=== PATIENT | female | born 1985 | race Caucasian/White ===

== ENCOUNTER 2016-12-17 15:17 | Emergency (ER) | payer MEDICAID ==
[~2016-12-17] VITALS: Wt 75.0 kg
[~2016-12-17 15:17] MED LIST: AMO500 PO; IBUP-1542 PO; NPH10OT RIGHT EAR; TRAM50TA2 PO
[2016-12-17] MEDS ORDERED: ACETAMINOPHEN 325 MG TAB PO STA (16:05)
[2016-12-17 16:28] LABS: ADD SCAN DIFF NO
[2016-12-17 16:31] LABS: BASOPHILS % 0.4 % (0.0-2.0); EOSINOPHILS # 0.3 10^3/ul (0.0-0.5); HEMATOCRIT 37.4 % (37.0-47.0); HEMOGLOBIN 12.2 g/dl (12.0-16.0); LYMPHOCYTES % 26.9 % (15.0-51.0); MEAN CORPUSCULAR HEMOGLOBIN 30.3 pg (29.0-33.0); MEAN CORPUSCULAR HGB CONC 32.6 g/dl (32.0-37.0); MONOCYTE # 0.7 10^3/ul (0.3-0.9); NEUTROPHIL # 7.2 10^3/ul (1.6-7.5); NEUTROPHILS % 63.5 % (39.0-77.0); PLATELET COUNT 424 10^3/UL (140-415); RED BLOOD COUNT 4.02 10^6/ul (4.20-5.40); RED CELL DISTRIBUTION WIDTH 12.3 % (11.5-14.5); WHITE BLOOD COUNT 11.3 10^3/ul (4.8-10.8)
[2016-12-17 16:32] LABS: ADD UMIC YES; URINE BILIRUBIN (Dip) NEGATIVE (NEGATIVE); URINE BLOOD (Dip) 2+ (NEGATIVE); URINE COLOR LT. YELLOW (YELLOW); URINE GLUCOSE (Dip) NEGATIVE (NEGATIVE); URINE KETONES (Dip) NEGATIVE (NEGATIVE); URINE LEUKOCYTE ESTERASE (Dip) TRACE (NEGATIVE); URINE NITRITE (Dip) NEGATIVE (NEGATIVE); URINE TOTAL PROTEIN (Dip) NEGATIVE (NEGATIVE); URINE UROBILINOGEN (Dip) 0.2 E.U./dL (0.1-1.0)
[2016-12-17 16:38] LABS: SQUAMOUS EPITHELIAL CELL,UR MODERATE
[2016-12-17 16:39] LABS: BACTERIA,URINE RARE
--- NOTE | 2016-12-17 17:38 | RADRPT ---
PROCEDURE: US OB. CLINICAL INDICATION: Vaginal bleeding. TECHNIQUE: Transabdominal and transvaginal views of the pelvis are available for review. COMPARISON: No prior studies are available for comparison. FINDINGS: Uterus: No abnormalities are demonstrated. Endometrial cavity: Gestational sac, yolk sac and pole are present with the following informa tion: [place]-rump length:0.44 cm heart rate:NOT DETECTED Gestational sac:1.67 cm Ultrasound estimated gestational age:6 weeks 2 days Subchorionic hemorrhage adjacent to the gestational sac is estimated at 1 cm. Right ovary/adnexa: Ovarian size is normal measuring 3.9 x 2.2 x 2.9 cm with normal blood flow. No ovarian or adnexal mass lesion is seen. Left ovary/adnexa: Ovarian size is normal measuring 3.3 x 3 x 2 cm with normal blood flow. Hemorrh agic corpus luteum cyst of 1.8 x 1.5 x 1.5 cm is noted No adnexal mass lesion is seen. Cul-de-sac: There is no free fluid. RPTAT:HJJR IMPRESSION: 1. Lack of detectable heart tones concerning for embryonic demise at an estimated gestational age o f 6 weeks 2 days. 2. Approximately 1 cm subchorionic hemorrhage. 3. Left ovarian corpus luteum cyst of 1.8 cm. Physician Ashanti Date Time Electronically viewed and signed by Physician Ashanti on 12/17/2016 17:37 JR/
[2016-12-17] MEDS ORDERED: ONDANSETRON (ODT) 4 MG TAB ODT ONE (18:32)
[2016-12-17] MEDS ORDERED: ACET500C5 PO (18:56)
--- NOTE | 2016-12-17 20:41 | ERD ---
ER Documentation Chief Complaint Date/Time DATE: 12/17/16 TIME: 20:38 Chief Complaint VAG BLEED AND LOWER BACK PAIN FOR THE PAST WEEK. NO VOMITING. 12 WKS PREG HPI 31-year-old woman presents with mild pelvic cramping 1 week and intermittent mild vaginal bleeding. Last weeks obstetric ultrasound revealed a 12 week intrauterine without heart tones. She denies fevers or chills, no dysuria, no chest pain or shortness of breath. Patient denies dizziness or loss of consciousness. ROS All systems reviewed and are negative except as per history of present illness. Medications Home Meds Active Scripts Acetaminophen* (Tylophen*) 500 Mg Capsule, 2 CAP PO Q8H Y for PAIN AND OR ELEVATED TEMP, #30 CAP Prov:ANNEL TRINIDAD MD 12/17/16 Ibuprofen* (Motrin*) 600 Mg Tab, 600 MG PO Q6, #20 TAB Prov:NUBIA BARNES MD 10/16/15 Tramadol HCl (Tramadol HCl) 50 Mg Tablet, 50 MG PO Q4 Y for PAIN, #14 TAB Prov:NUBIA BARNES MD 10/16/15 Neomycin/Polymyxin/Hydrocort* (Cortisporin* Otic) 10 Ml Susp, 4 DROP RIGHT EAR QID for 7 Days, EA Prov:NUBIA BARNES MD 10/16/15 Amoxicillin* (Amoxicillin*) 500 Mg Cap, 500 MG PO TID for 7 Days, CAP Prov:VALDO LEAL 10/10/15 Ibuprofen* (Ibuprofen*) 600 Mg Tablet, 600 MG PO Q6 for 7 Days, TAB Prov:VALDO LEAL 10/10/15 Allergies Allergies: Coded Allergies: No Known Allergy (Unverified , 01/01/14) PMhx/Soc None Medical and Surgical Hx: pt denies Medical Hx, pt denies Surgical Hx Hx Substance Use: No Hx Tobacco Use: No Smoking Status: Never smoker FmHx Family History: No diabetes Physical Exam Vitals Vital Signs Date Time Temp Pulse Resp B/P Pulse Ox O2 Delivery O2 Flow Rate FiO2 12/17/16 15:38 98.8 84 20 123/85 98 Physical Exam GENERAL: Well-developed, well-nourished, well-hydrated, in no apparent distress , looks nontoxic in appearance HEENT: Moist mucous membranes, pink conjunctiva, no cervical spine tenderness or step-off deformities, no goiter, no jaundice or icterus, extraocular movements intact without pain. No submandibular induration, and no pharyngeal erythema NEURO: Alert and oriented 3, cranial nerves II through XII intact bilaterally, pupils equal round reactive to light, no focal deficits or facial asymmetry, sensation intact distally Strength 5/5 in upper and lower extremities bilaterally CARDIAC: Regular rate and rhythm, no murmurs rubs or gallops LUNGS: Clear bilaterally no wheezing crackles or stridor ABDOMEN: Soft nontender, no guarding, no rigidity, no rebound, no psoas sign no obturator sign. Normoactive bowel sounds SKIN: Warm and dry to touch, no abrasions, contusions, or hematomas, no lacerations, no ecchymosis, no target lesions, and without ulcers EXTREMITIES: No clubbing cyanosis or edema, calves are bilaterally symmetrical, no Homans sign, no popliteal cord sign. Distal pulses equal and bilateral PSYCH: Normal affect without agitation or irritability Result Diagram: 12/17/16 1615 Results 24 hrs Laboratory Tests Test 12/17/16 16:15 White Blood Count 11.310^3/ul Red Blood Count 4.0210^6/ul Hemoglobin 12.2g/dl Hematocrit 37.4% Mean Corpuscular Volume 93.0fl Mean Corpuscular Hemoglobin 30.3pg Mean Corpuscular Hemoglobin Concent 32.6g/dl Red Cell Distribution Width 12.3% Platelet Count 78744^3/UL Mean Platelet Volume 10.0fl Neutrophils % 63.5% Lymphocytes % 26.9% Monocytes % 6.0% Eosinophils % 3.0% Basophils % 0.4% Nucleated Red Blood Cells % 0.0/100WBC Neutrophils # 7.210^3/ul Lymphocytes # 3.010^3/ul Monocytes # 0.710^3/ul Eosinophils # 0.310^3/ul Basophils # 0.010^3/ul Nucleated Red Blood Cells # 0.010^3/ul Urine Color LT. YELLOW Urine Clarity CLEAR Urine pH 7.0 Urine Specific [place] <=1.005 Urine Ketones NEGATIVE Urine Nitrite NEGATIVE Urine Bilirubin NEGATIVE Urine Urobilinogen 0.2 E.U./dL Urine Leukocyte Esterase TRACE Urine Microscopic RBC 5-10/HPF Urine Microscopic WBC 2-5/HPF Urine Squamous Epithelial Cells MODERATE Urine Bacteria RARE Urine Hemoglobin 2+ Urine Glucose NEGATIVE% Urine Total Protein NEGATIVE Beta HCG, Quantitative 8266.1mIU/ml Current Medications Medications (Trade) Dose Ordered Sig/Marino Route PRN Reason Start Time Stop Time Status Last Admin Dose Admin Acetaminophen (Tylenol Tab) 650 mg ONCE STAT PO 12/17/16 16:05 12/17/16 16:06 DC 12/17/16 16:19 Ondansetron HCl (Zofran Odt) 4 mg STK-MED ONCE ODT 12/17/16 18:32 12/17/16 18:33 DC Procedures/MDM I administered acetaminophen 650 mg p.o. for her symptoms with good response. test was positive, urine analysis was unremarkable. Obstetric ultrasound of the pelvis was performed revealing an intrauterine at about 6 weeks without heart tones. CBC was unremarkable, beta-hCG elevated at about 8300. Patient suffered a missed and will be managed as an outpatient, have no indication for any further intervention, imaging, or admission. Her vital signs are normal, pain is been controlled, and she is afebrile. She does have a gynecology clinic that she follows up with my recommended she have her ultrasound and beta-hCG repeated in 1-2 days. She and her was at the bedside understood instructions and agreed to plan. Differential diagnoses considered, included but not limited to cervicitis, ovarian torsion, ectopic , abdominal aortic aneurysm, sepsis, stroke, meningitis, encephalitis, pneumonia, appendicitis, cholecystitis, bowel obstruction, pyelonephritis, nephrolithiasis, cystitis, as well as metabolic, hematologic, and electrolyte abnormalities. As well as abscess, cellulitis, fractures, and dislocations. Patient feels much better at this time, and vital signs are normal, symptoms have improved. I did give strict instructions to return to the ED if symptoms continue or worsen, patient will otherwise follow-up with primary care physician. Patient understood instructions and agreed to plan. Departure Diagnosis: Primary Impression: Missed Condition: Good Patient Instructions: Missed Miscarriage ANNEL TRINIDAD MD Dec 17, 2016 20:41
== END 2016-12-17 19:07 | disposition home or self-care (01) ==
LOC: FTE 15:17
DX: O02.1 Missed abortion (principal)
CPT/HCPCS: 36415; 76801; 76817; 81001; 81003; 84702; 85025; Z7502; Z7610

== ENCOUNTER 2018-05-26 17:18 | Emergency (ER) | END 2018-05-26 21:01 | disposition home or self-care (01) ==

== ENCOUNTER 2018-12-08 10:39 | Outpatient (CLI) | payer MEDICAID ==
[~2018-12-08] VITALS: Ht 162.6 cm; Wt 78.2 kg
[~2018-12-08 10:39] MED LIST changes: +ACET500C5 PO; -AMO500 PO; +AMOX500C2 PO; +CEPH-443 PO
[2018-12-08 11:12] VITALS: Ht 162.6 cm; Wt 78.2 kg
[2018-12-08 11:13] VITALS: BP 112/77; PULSE 93; RESP 20
--- NOTE | 2018-12-08 15:50 | PN ---
Triage Information Date/Time December 08, 2018 Reason for visit: Weeks of Gestation 32 weeks and 6 days /Para 4 para 2 Diabetes: none Hypertention: none Additional information 33-year-old with IUP at 32 weeks and 6 days presented with complaint of pelvic pain and pressure symptoms. She denies any vaginal bleeding however reports some leaking of urine. Denies any decreased movement. Denies any fever or chills. Reports pelvic pressure over the bladder. Denies any comp occasions during course Objective Vital Signs Date Temp Pulse Resp B/P (MAP) Pulse Ox O2 O2 Flow FiO2 Time Delivery Rate 12/08/18 98.2 93 20 112/77 Room Air 11:13 (89) Heart Rate: 130's Heart Rate Comments Category 1 Contractions: None Exam Appearance: Alert and oriented x4. appears to be in mild distress abdomen: Soft, gravid. Tenderness in the suprapubic area and over the bladder noted Fundal height consider gestational age No CVA tenderness Sterile speculum examination: Negative pooling, negative R OM test, negative nitrazine Results/Medications Results 24 hrs Laboratory Tests Test 12/08/18 10:00 12/08/18 13:40 Urine Color YELLOW Urine Clarity CLOUDY A Urine pH 6.0 Urine Specific [place] 1.016 Urine Ketones NEGATIVE Urine Nitrite NEGATIVE Urine Bilirubin NEGATIVE Urine Urobilinogen NEGATIVE Urine Leukocyte Esterase 3+ H Urine Microscopic RBC 2 Urine Microscopic WBC 12 H Urine Squamous Epithelial Cells MODERATE Urine Bacteria FEW A Urine Mucus FEW A Urine Hemoglobin NEGATIVE Urine Glucose NEGATIVE Urine Total Protein NEGATIVE Membranes Rupture NEGATIVE Imaging Results PROCEDURE: US OB biophysical profile. CLINICAL INDICATION: decreased movements, labor TECHNIQUE: Multiple sonographic images of the pelvis were obtained. The images were reviewed on a PACS workstation. COMPARISON: No prior studies are available for comparison. FINDINGS: There is a single live intrauterine gestation. Cardiac activity is present with 137 beats per minute. There is a vertex presentation. The placenta is posterior fundal. There is no evidence of placental abruption. There is a normal amount of amniotic fluid with an KEREN = 9.0 cm. Biophysical profile: movement 2/2 tone 2/2. breathing 2/2 KEREN 2/2 Total 8/8 RPTAT: AA . IMPRESSION: Normal biophysical profile. . Disposition: Discharge Assessment/Plan IUP at 32 weeks and 6 days Abdominal pain, pelvic pain and pressure, suprapubic tenderness UA consistent with UTI No evidence of PPROM or labor Patient will be discharged home with antibiotics. Rx with Keflex 500 mg p.o. 4 times daily for 7 days prescribed Discussed with the patient regarding adequate hydration Follow-up with primary OB office within 48 hours discussed with the patient labor precautions kick counts Discussed with patient. All questions were answered to patient's best satisfaction and patient verbalized understanding REGINA GARCIA MD Dec 08, 2018 15:50
== END 2018-12-08 15:10 | disposition home or self-care (01) ==
LOC: OBT 10:39 → L-D 10:40 → OBT 15:10
PROVIDERS: ATTEND Obstetrics & Gynecology
DX: O26.893 Other specified pregnancy related conditions, third trimester (principal); Z3A.32 32 weeks gestation of pregnancy; R10.2 Pelvic and perineal pain
CPT/HCPCS: 76818; 81001; 84112; G0463

== ENCOUNTER 2019-01-12 07:43 | Inpatient (IN) | payer MEDICAID ==
[~2019-01-12] VITALS: Ht 162.6 cm; Wt 80.8 kg
[2019-01-12 07:58] VITALS: Ht 162.6 cm; Wt 80.8 kg
[2019-01-12] MEDS ORDERED: LACTATED RINGER'S 1,000 ML IV PRN (12:36)
--- NOTE | 2019-01-12 12:49 | TRIAGE ---
OB Triage Datetime Report Generated by CPN: 01/12/2019 12:49 Datetime: 01/12/2019 12:31 Membrane Status: Intact Datetime: 01/12/2019 12:08 Vaginal Exam Dilatation (cms): 4.0 Effacement (%): 50 Station: -3 Exam By: TM Datetime: 01/12/2019 10:05 Vaginal Exam Dilatation (cms): 3.5 Effacement (%): 50 Station: -3 Exam By: TM Datetime: 01/12/2019 08:41 Vaginal Exam Dilatation (cms): 3.0 Effacement (%): 50 Station: -3 Exam By: TM Pool: Negative Nitrazine: Negative Datetime: 01/12/2019 07:56 Time of Arrival: 01/12/2019 07:40 EGA: 37.6 Arrived By: Ambulatory Arrived From: Home Movement: Present Contractions: Occasional Rupture of Membranes: Unsure Vaginal Bleeding: Normal Show Vaginal Discharge: Denies Recent Sexual Intercouse: Denies Abdominal Trauma: Not Applicable Patient Complaints: Contractions Time Provider Notified: 01/12/2019 08:14 Provider Notified: Hadadian Initial Plan: NST, VE, ambulate Datetime: 01/12/2019 07:55 Assessment Type: Triage Maternal Assessment Level of Consciousness: Fully Conscious DTR's/Clonus: DTRs 2+; No Clonus Headache: Denies Blurred Vision: No Respiratory Effort: Unlabored; Regular Rhythm; Equal Expansion Breath Sounds, Left: Clear and Equal Breath Sounds, Right: Clear and Equal Nausea/Vomiting: Denies RUQ Epigastric Pain: Denies Lower Extremities Edema: Bilateral Lower Extremities Degree: Trace Upper Extremities Edema: None Degree: None Facial Edema: None Fall Risk Assessment History of Falling: (0) No Secondary Diagnosis: (0) No Ambulatory Aid: (0) Bedrest/Nurse Assist IV Therapy: (0) No Gait: (0) Normal/Bedrest/Immobile Mental Status: (0) Oriented to Own Ability Fall Score: 0 Fall Risk Score Definition: No Risk: No action required Datetime: 01/12/2019 07:50 Stage of : OB Triage Datetime: 12/08/2018 14:55 Labor Evaluation Frequency: X1 Monitor Mode: External Duration (sec)2399: 40 Quality: Mild Pattern: Normal: <= 5 Contractions in 10 Minutes Resting Tone [place]: Relaxed Heart Rate FHR Baseline Rate: 130 Monitor Mode: External US FHR Baseline Changes: No Baseline Change Variability: Moderate 6-25 bpm Accelerations: 15X15 Decelerations: None Category: Category I Pain Assessment Pain Scale: 0 Pain Presence: None/Denies Pain Type: N/A Pain Goal: 0 Datetime: 12/08/2018 14:00 Labor Evaluation Frequency: 0 Monitor Mode: External Heart Rate FHR Baseline Rate: 130 Monitor Mode: External US FHR Baseline Changes: No Baseline Change Variability: Moderate 6-25 bpm Accelerations: 15X15 Decelerations: None Category: Category I Pain Assessment Pain Scale: 4 Pain Presence: Intermittent Pain Type: Pressure; Ache Pain Location: Abdomen; Perineum Pain Goal: 0 Datetime: 12/08/2018 13:06 Labor Evaluation Frequency: X3 Monitor Mode: External Duration (sec)2399: 40-60 Quality: Moderate Pattern: Normal: <= 5 Contractions in 10 Minutes Resting Tone [place]: Relaxed Heart Rate FHR Baseline Rate: 130 Monitor Mode: External US FHR Baseline Changes: No Baseline Change Variability: Moderate 6-25 bpm Accelerations: 15X15 Decelerations: None Category: Category I Pain Assessment Pain Scale: 6 Pain Presence: Intermittent Pain Type: Pressure; Ache Pain Location: Abdomen; Perineum Pain Goal: 0 Datetime: 12/08/2018 12:06 Labor Evaluation Frequency: X1 Monitor Mode: External Duration (sec)2399: 40 Quality: Mild Pattern: Normal: <= 5 Contractions in 10 Minutes Resting Tone [place]: Relaxed Heart Rate FHR Baseline Rate: 130 Monitor Mode: External US FHR Baseline Changes: No Baseline Change Variability: Moderate 6-25 bpm Accelerations: 15X15 Decelerations: None Category: Category I Pain Assessment Pain Scale: 8 Pain Presence: Intermittent Pain Type: Pressure; Ache Pain Location: Abdomen; Perineum Pain Goal: 0 Datetime: 12/08/2018 11:15 EGA: 32.6 Datetime: 12/08/2018 11:05 Stage of : OB Triage Assessment Type: Triage Maternal Assessment Level of Consciousness: Fully Conscious DTR's/Clonus: DTRs 2+; No Clonus Headache: Denies Blurred Vision: No Respiratory Effort: Unlabored; Regular Rhythm; Equal Expansion Breath Sounds, Left: Clear and Equal Breath Sounds, Right: Clear and Equal Nausea/Vomiting: Denies RUQ Epigastric Pain: Denies Lower Extremities Edema: None Degree: None Upper Extremities Edema: None Degree: None Facial Edema: None Temperature Route: Axillary Fall Risk Assessment History of Falling: (0) No Secondary Diagnosis: (0) No Ambulatory Aid: (0) Bedrest/Nurse Assist IV Therapy: (0) No Gait: (0) Normal/Bedrest/Immobile Mental Status: (0) Oriented to Own Ability Fall Score: 0 Fall Risk Score Definition: No Risk: No action required Datetime: 12/08/2018 10:35 Time of Arrival: 12/08/2018 10:35 EGA: 33.0 Arrived By: Ambulatory Arrived From: Home Chief Complaint: PRESSURE AND ABDOMINAL PAIN SINCE WEDNESDAY Movement: Present Contractions: Irregular Rupture of Membranes: Denies Vaginal Bleeding: None Vaginal Discharge: Denies Recent Sexual Intercouse: Denies Abdominal Trauma: Not Applicable Patient Complaints: Other Time Provider Notified: 12/08/2018 13:19 Provider Notified: JOSE Initial Plan: ISAIAS NORTON
--- NOTE | 2019-01-12 12:54 | HP ---
Date/Time of Note Date/Time of Note DATE: 01/12/19 TIME: 12:49 OB - History Hx of Present Free Text/Dictation 01/12/2019 Estimated Due Date: January 27, 2019 : 4 Para: 2 Care: Good Care Other Concerns: 33 years old with IUP at 37 weeks and 6 days with [facility] presented with complaint of labor and painful contractions, She was noted to have contractions every 4-5 min and cervical change consistent with likely early labor. She was admited due to cervical change GBS unknown. Antepartum course was only complicated by low MARIKA- A, otherwise non significant Past Family/Social History * Past Medical, Surgical, Family and Obstetric Histories reviewed from chart. Blood Type: O+ Rubella: immune RPR/VDRL: Negative GBS Status: Unknown HBsAG: Negative OB Admission Exam Physical Exam HEENT: WNL Heart: Rhythm Normal Lungs: Clear Abdomen: WNL Extremities: Normal Cervical Dilatation: 3cm Effacement: 50% Station: -3 Membranes: Intact Heart Rate: 130's Accelerations: Accelerations Present Decelerations: No Decelerations Varibility: Marked Contractions on Admission: < 5 Minutes Apart Intensity: Moderate OB Assessment/Plan Other Assessment: IUP at 37 weeks and 6 days contractions early labor GBS unknown Due to cervical change patient will be admitted for labor management. Admit the patient to labor and delivery Expectant management Anticipate REGINA YANG MD Jan 12, 2019 12:54
[2019-01-12] MEDS ORDERED: LIDOCAINE 1% (MPF) 30 ML INJ INJ PRN (13:00)
[2019-01-12] MEDS ORDERED: METHYLERGONOVINE 0.2 MG INJ IM PRN (13:00)
[2019-01-12] MEDS ORDERED: BUTORPHANOL 2 MG INJ IV PRN (13:00)
[2019-01-12] MEDS ORDERED: CARBOPROST 250 MCG INJ IM PRN (13:00)
[2019-01-12] MEDS ORDERED: IBUPROFEN 600 MG TAB PO PRN (13:00)
[2019-01-12] MEDS ORDERED: MINERAL OIL LIGHT 10 ML VIAL TOP PRN (13:00)
[2019-01-12] MEDS ORDERED: OXYTOCIN 30 UNITS/LR 500 ML IV SCH ×3 (13:00→23:00)
[2019-01-12] MEDS ORDERED: OXYTOCIN 30 UNITS/LR 500 ML IV PRN (13:00)
[2019-01-12] MEDS ORDERED: MISOPROSTOL 200 MCG TAB PR PRN (13:00)
[2019-01-12] MEDS: LACTATED RINGER'S 1,000 ML IV SCH ×3 (14:00→20:36)
[2019-01-13] MEDS ORDERED: OXYTOCIN 10 UNIT INJ ONE (02:01)
[2019-01-13] MEDS: LACTATED RINGER'S 1,000 ML IV SCH ×2 (04:45→10:06)
--- NOTE | 2019-01-13 08:34 | PREAC ---
Date/Time of Note Date/Time of Note DATE: 01/13/19 TIME: 08:33 Anesthesia Eval and Record Evaluation Time Pre-Procedure Interview DATE: 01/13/19 TIME: 08:33 Age 33 Sex female NPO: 8 hrs Preoperative diagnosis Planned procedure labor epidural Past Medical History Past Medical History: None Surgery & Anesthesia Issues No known issue Meds Anticoagulation: No Beta Del within 24 hr: No Reason Beta Del not given: Pt. not on B-Del No Active Prescriptions or Reported Meds Current Medications Lactated Ringer's 1,000 ml @ 125 mls/hr Q8H IV Last administered on 01/13/19at 04:45; Admin Dose 125 MLS/HR; Start 01/12/19 at 12:36 Butorphanol Tartrate (Stadol) 2 mg Q2H PRN IV .PAIN Last administered on 01/12/19at 14:27; Admin Dose 2 MG; Start 01/12/19 at 13:00 Lidocaine (Xylocaine 1% (Mpf)) 30 ml ONCE PRN INJ .EPISIOTOMY; Start 01/12/19 at 13:00 Oxytocin/Lactated Ringer's 500 ml @ 500 mls/hr ONCE POST IV ; Start 01/12/19 at 13:00 Oxytocin/Lactated Ringer's 500 ml @ 125 mls/hr POST IV ; Start 01/12/19 at 13:00 Ibuprofen (Motrin) 600 mg ONCE PRN PO .PAIN 1-5; Start 01/12/19 at 13:00 Lactated Ringer's 1,000 ml @ 2,000 mls/hr Q30M PRN IV .ANESTHESIA; Start 01/12/19 at 12:36 Oxytocin/Lactated Ringer's 500 ml @ 0 mls/hr ONCE PRN IV .VAGINAL BLEEDING; Start 01/12/19 at 13:00 Methylergonovine Maleate (Methergine) 0.2 mg ONCE PRN IM .VAGINAL BLEEDING; Start 01/12/19 at 13:00 Carboprost Tromethamine (Hemabate) 250 mcg ONCE PRN IM .VAGINAL BLEEDING; Start 01/12/19 at 13:00 Misoprostol (Cytotec) 1,000 mcg ONCE PRN LA .VAGINAL BLEEDING; Start 01/12/19 at 13:00 Oxytocin/Lactated Ringer's 500 ml @ 0 mls/hr FOR AUGMENTATION IV Last administered on 01/12/19at 23:29; Admin Dose 1 MLS/HR; Start 01/12/19 at 23:00 Meds reviewed: Yes Allergies Coded Allergies: No Known Allergy (Unverified , 01/01/14) Allergies Reviewed: Yes Labs/Studies Labs Reviewed: Reviewed by anesthesiologist Result Diagram: 01/12/19 1320 Laboratory Tests 01/12/19 13:20 Blood Bank Test 01/12/19 13:20 Antibody Screen NEGATIVE Blood Type O POSITIVE Rh Immune Globulin Candidate NO test: Positive Pre-procedure Exam Airway: Adequate mouth opening, Adequate thyromental dist Mallampati: Mallampati II Teeth: Normal Lung: Normal Heart: Normal ASA Physical Status ASA physical status: 2 Emergency: None Planned Anesthetic Neuraxial: Epidural Pre-operative Attestations Prior to commencing anesthesia and surgery, the patient was re-evaluated, there was verification of: *The patient's identity *The results of appropriate recent lab work and preoperative vital signs *The above evaluation not changing prior to induction *Anesthetic plan, risk benefits, alternative and complications discussed with patient/family; questions answered; patient/family understands, accepts and wishes to proceed. KEVIN HENRIQUEZ Jan 13, 2019 08:34
[2019-01-13] MEDS ORDERED: HYDROmorphONE 0.5 MG/0.5 ML SYG IV PRN ×2 (09:00)
[2019-01-13] MEDS ORDERED: ONDANSETRON 4 MG INJ IV PRN (09:00)
[2019-01-13] MEDS ORDERED: DIPHENHYDRAMINE 50 MG INJ IV PRN (09:00)
[2019-01-13] MEDS ORDERED: KETOROLAC 30 MG INJ IV PRN (09:00)
[2019-01-13] MEDS ORDERED: FENTAnyl 2MCG/ML-ROPIV 0.2% 100 ML BAG EPI SCH (09:00)
[2019-01-13] MEDS ORDERED: NALOXONE (0.4 MG/ML) INJ IV PRN (09:00)
[2019-01-13] MEDS ORDERED: FENTAnyl 2MCG/ML-ROPIV 0.2% 100 ML ONE (09:09)
--- NOTE | 2019-01-13 09:22 | PAC ---
Date/Time of Note Date/Time of Note DATE: 01/13/19 TIME: 09:22 Post-Anesthesia Notes Post-Anesthesia Note Activity: WNL Respiratory function: WNL Cardiovascular function: WNL Mental status: Baseline Pain reasonably controlled: Yes Hydration appropriate: Yes Nausea/Vomiting absent: Yes KEVIN HENRIQUEZ Jan 13, 2019 09:22
--- NOTE | 2019-01-13 15:17 | QN ---
Documentation Comment service rendered at 01/13/19 has been on pitocin more than 12hrs VE /3 stopped pitocin ARM clear fluid restart in 2hrs if uc's space out CAT i tracing KATHIE RUSSO MD Jan 13, 2019 15:17
--- NOTE | 2019-01-13 18:23 | LDN ---
Date/Time of Note Date/Time of Note DATE: 01/13/19 TIME: 18:21 Delivery Summary of normal male Weeks of Gestation 38w Placenta Delivered: Spontaneously, Intact & Complete Meconium: none Episiotomy: No Perineal laceration: 1 Laceration repair: 000 ch gut Anesthesia type: Epidural Estimated blood loss: 100 Sponge & Needle done & correct: Yes All needle counts correct: Yes Any foreign bodies felt in the: No Infant Delivery Information Sex Sex: male Apgars 1 Minute: 9 5 Minute: 9 Suctioning Nose & mouth suctioned at juilan: Yes Delee suction performed: Yes Umbilical Cord Umbilical cord with: 3 Vessels Cord presentations: no nuchal cord Cord Blood was obtained: Yes Mother & Baby Disposition Disposition Mom & Baby to Maternity; Good: Yes Mom transferred to: Other Baby to NICU: No () KATHIE RUSSO MD Jan 13, 2019 18:23
[2019-01-13 18:33] VITALS: BP 126/77; PULSE 80; RESP 18
[2019-01-13 18:48] VITALS: BP 122/76; PULSE 73; RESP 18
[2019-01-13 19:03] VITALS: BP 113/73; PULSE 72
[2019-01-13 19:18] VITALS: BP 116/73; PULSE 80; RESP 18
[2019-01-13] MEDS ORDERED: PREN-99 PO (19:32)
[2019-01-13 20:30] VITALS: BP 114/80; PULSE 78; RESP 18
[2019-01-13] MEDS ORDERED: OXYCODONE/ASPIRIN (4.88/325) TAB PO PRN (21:00)
[2019-01-13] MEDS ORDERED: MISOPROSTOL 200 MCG TAB PR PRN (21:00)
[2019-01-13] MEDS ORDERED: OXYTOCIN 30 UNITS/LR 500 ML IV PRN (21:00)
[2019-01-13] MEDS ORDERED: LANOLIN HPA 1 PKT TOP PRN (21:00)
[2019-01-13] MEDS ORDERED: WITCH HAZEL/GLYCERIN PAD PR PRN (21:00)
[2019-01-13] MEDS ORDERED: METHYLERGONOVINE 0.2 MG INJ IM PRN (21:00)
[2019-01-13] MEDS ORDERED: BENZOCAINE 20% 56 ML SPRAY TOP PRN (21:00)
[2019-01-13] MEDS ORDERED: CARBOPROST 250 MCG INJ IM PRN (21:00)
[2019-01-13] MEDS ORDERED: ZOLPIDEM 5 MG TAB PO PRN (21:00)
[2019-01-13] MEDS: SENNA/DOCUSATE NA (8.6MG/50MG) TAB PO SCH (23:37)
[2019-01-13 23:39] VITALS: BP 103/67; PULSE 87; RESP 18
[2019-01-14] MEDS: OXYCODONE/ASPIRIN (4.88/325) TAB PO PRN (03:06)
[2019-01-14 03:50] VITALS: BP 112/66; PULSE 70; RESP 18
[2019-01-14 07:30] VITALS: BP 107/75; PULSE 77; RESP 18
[2019-01-14] MEDS: SENNA/DOCUSATE NA (8.6MG/50MG) TAB PO SCH ×2 (09:20→20:37)
--- NOTE | 2019-01-14 11:52 | PN ---
Date/Time of Note Date/Time of Note DATE: 01/14/19 TIME: 11:50 OB Subjective Subjective Subjective PPD# 2 Patient is doing well. She denies nausea, vomiting, shortness of breath, chest pain, headache. She has been ambulating without difficulty, tolerating regular diet. Pain is well controlled on current medications OB Objective Objective Objective VS - Last 72 Hours, by Label Date Temp Pulse Resp B/P (MAP) Pulse Ox O2 O2 Flow FiO2 Time Delivery Rate 01/14/19 97.5 77 18 107/75 Room Air 07:30 (86) 01/14/19 98.6 70 18 112/66 Room Air 03:50 (81) 01/13/19 98.2 87 18 103/67 Room Air 23:39 (79) 01/13/19 99.0 78 18 114/80 Room Air 20:30 (91) 01/13/19 80 18 116/73 Room Air 19:18 (87) 01/13/19 72 113/73 Room Air 19:03 (86) 01/13/19 98.4 73 18 122/76 Room Air 18:48 (91) 01/13/19 98.4 80 18 126/77 Room Air 18:33 (93) General: AAO X 3, comfortable, NAD, appropriate mood and affect. ABD: +BS. Soft, non-tender. Uterus 2 cm below umbilicus Flank: No CVA tenderness (B/L) LE: Mild edema. No clubbing, cyanosis, thigh or calf tenderness (B/L). Homans 'sign is negative OB Assessment/Plan Other plan: 33 years old at 37 weeks and 6 days s/p normal vaginal delivery . PPD#2 - AF, VSS - Baby is doing well, at bed side. She is bonding well - Contraception methods with R/B/A/FR discussed - Continue care - Discharge home - Rx and instruction given - Follow up in 2 and 6 weeks at clinic JANIS SCHWARTZ Jan 14, 2019 11:52
--- NOTE | 2019-01-14 11:53 | DS ---
Date/Time of Note Date/Time of Note DATE: 01/14/19 TIME: 11:52 Obstetrical Discharge Record Final Diagnosis Final Diagnosis: Term delivered Other Final Diagnosis 33 years old at 37 weeks and 6 days s/p normal vaginal delivery . PPD#2. course was unremarkable. She is ambulating and tolerating regular diet she is voiding without difficulty pain is controlled on current medication - AF, VSS - Baby is doing well, at bed side. She is bonding well - Contraception methods with R/B/A/FR discussed - Continue care - Discharge home - Rx and instruction given - Follow up in 2 and 6 weeks at clinic Vaginal Delivery Obstetrical Delivery: Spontaneous Condition on Discharge Physical Assessment Last Vitals: Vital Signs Date Temp Pulse Resp B/P (MAP) Pulse Ox O2 O2 Flow FiO2 Time Delivery Rate 01/14/19 97.5 77 18 107/75 Room Air 07:30 (86) Voiding: Yes Bowel Movement: Yes Breast: Soft, non-tender Fundus: Firm Calf Tenderness: No Patient Condition: Stable JANIS SCHWARTZ Jan 14, 2019 11:53
[2019-01-14] MEDS: IBUPROFEN 600 MG TAB PO SCH ×3 (12:01→23:59)
[2019-01-14 12:21] VITALS: BP 113/72; PULSE 93; RESP 17
[2019-01-14 15:57] VITALS: BP 119/91; PULSE 76; RESP 22
[2019-01-14 19:50] VITALS: PULSE 67; RESP 19
[2019-01-15 03:45] VITALS: BP 97/60; PULSE 77; RESP 20
[2019-01-15] MEDS: IBUPROFEN 600 MG TAB PO SCH ×2 (05:26→11:48)
[2019-01-15 08:00] VITALS: BP 119/83; PULSE 70; RESP 16
[2019-01-15] MEDS: SENNA/DOCUSATE NA (8.6MG/50MG) TAB PO SCH (08:13)
[2019-01-15] MEDS: OXYCODONE/ASPIRIN (4.88/325) TAB PO PRN (08:13)
[2019-01-15] MEDS ORDERED: DIPHTH/TET/ACEL PERTUSS (ADULT) 0.5 ML VIAL IM* ONE (09:00)
--- NOTE | 2019-01-16 13:22 | DELSUM ---
Delivery Summary A-C Datetime Report Generated by CPN: 01/16/2019 13:22 DELIVERY PERSONNEL Electric Meter Repairer Apprentice: Orel, Hilary MATERNAL INFORMATION Delivery Anesthesia: Epidural Medications in Delivery: pitocin 30 units in LR 500 ml Delivery QBL (ml): 100 Placenta Cultured: No Maternal Complications: None LABOR SUMMARY EDC: 01/27/2019 00:00 No. Babies in Womb: 1 Attempted: No Labor Anesthesia: Epidural LABOR INFORMATION Reason for Induction: Not Applicable Onset of Labor: 01/13/2019 06:00 Complete Dilatation: 01/13/2019 16:16 Oxytocin: Augmentation Group B Beta Strep: Negative Antibiotics # of Doses: none Steroids Given: None Reason Steroids Not Administered: Not Applicable MEMBRANES Membranes Rupture Method: Artificial Rupture of Membranes: 01/13/2019 12:50 Length of Rupture (hr): 4.98 Amniotic Fluid Color: Clear Amniotic Fluid Amount: Small Amniotic Fluid Odor: None STAGES OF LABOR Stage 1 hr: 10 Stage 1 min: 16 Stage 2 hr: 1 Stage 2 min: 33 Stage 3 hr: 0 Stage 3 min: 4 Total Time in Labor hr: 11 Total Time in Labor min: 53 VAGINAL DELIVERY Episiotomy: None Laceration Extension: First Degree Laceration Type: Perineal Laceration Repair: Yes Initial Vag Sponge Count: 10 Final Vag Sponge Count: 10 Initial Vag Sharps Count: 1 Final Vag Sharps Count: 1 Sponge Count Correct: Yes Sharps Count Correct: Yes Count Comment: 1 suture added BABY A INFORMATION Infant Delivery Date/Time: 01/13/2019 17:49 Method of Delivery: Vaginal Born in Route : No : N/A Forceps: N/A Vacuum Extraction: N/A Shoulder Dystocia : No SHOULDER DYSTOCIA BABY A Delivery Date/Time: 01/13/2019 17:49 PRESENTATION/POSITION BABY A Presentation: Cephalic Cephalic Presentation: Vertex Vertex Position: Left Occipital Anterior Breech Presentation: N/A PLACENTA INFORMATION BABY A Placenta Delivery Time : 01/13/2019 17:53 Placenta Method of Delivery: Spontaneous Placenta Status: Delivered SCORES BABY A Heart Rate 1 min: >100 bpm Resp Effort 1 min: Good Cry Reflex Irritability 1 min: Cough/Sneeze/Pulls Away Muscle Tone 1 min: Active Motion Color 1 min: Body [place], Extremit Blue Resuscitation Effort 1 min: Tactile Stimulation SCORE 1 MIN: 9 Heart Rate 5 min: >100 bpm Resp Effort 5 min: Good Cry Reflex Irritability 5 min: Cough/Sneeze/Pulls Away Muscle Tone 5 min: Active Motion Color 5 min: Body [place], Extremit Blue Resuscitation Effort 5 min: Tactile Stimulation SCORE 5 MIN: 9 INFORMATION BABY A Gestational Age at Delivery: 38.0 Gestational Status: Early Term- 37- 38.6 Weeks Outcome : Liveborn Infant Condition : Stable Sex: Male IDENTIFICATION/MEDS BABY A ID Band Number: [id number] ID Band Location: Right Leg; Left Arm Sensor Applied: Yes Sensor Number: [id number] Sensor Location : Cord Clamp Vitamin K Given : Not Given Erythromycin Given: Not Given WEIGHT/LENGTH BABY A Infant Birthweight (gm): 2775 Infant Weight (lb): 6 Infant Weight (oz): 2 Length (in): 19.00 Infant Length (cm): 48.26 CORD INFORMATION BABY A No. Cord Vessels: 3 Nuchal Cord : N/A Cord Blood Taken: Yes Infant Suction: Mouth; Nose ASSESSMENT BABY A Infant Complications: None Physical Findings at Delivery: Within Normal Limits Respirations: Appears Normal Spindle Carver/ALS Called : No Infant Care By: ALDEN Aldana Transferred To: Remains with Mother
== END 2019-01-15 12:30 | disposition home or self-care (01) | DRG 807 ==
LOC: OBT 07:43 → L-D 07:43 → OBT 12:36 → L-D 13:01 → PP1 01-13 20:16
PROVIDERS: ADMIT Obstetrics & Gynecology; ATTEND Obstetrics & Gynecology
PROC: 10E0XZZ Delivery of Products of Conception, External Approach (ICD-10-PCS; principal; 2019-01-13)
PROC: 0HQ9XZZ Repair Perineum Skin, External Approach (ICD-10-PCS; 2019-01-13)
PROC: 10907ZC Drainage of Amniotic Fluid, Therapeutic from Products of Conception, Via Natural or Artificial Opening (ICD-10-PCS; 2019-01-13)
DX: O60.23X0 Term delivery with preterm labor, third trimester, not applicable or unspecified (principal); Z37.0 Single live birth; O70.9 Perineal laceration during delivery, unspecified; Z3A.37 37 weeks gestation of pregnancy
CPT/HCPCS: 62322; 76818; 84112; 85025; 85610; 85730; 86592; 86850; 86900; 86901; 87340; G0463; J0595; J1200; J2590; J3010; J7120